=== PATIENT | female | born 1985 | race Caucasian/White ===

== ENCOUNTER 2016-11-25 11:33 | Emergency (ER) | payer MEDICAID ==
[~2016-11-25] VITALS: Ht 162.6 cm; Wt 107.0 kg
[2016-11-25 16:34] VITALS: BP 118/74
== END 2016-11-25 16:34 | disposition home or self-care (01) ==
LOC: ED 11:33
DX: J45.901 Unspecified asthma with (acute) exacerbation (principal); J20.9 Acute bronchitis, unspecified
CPT/HCPCS: J7512; J7613

== ENCOUNTER 2017-02-08 10:33 | Emergency (ER) | payer MEDICAID ==
[~2017-02-08] VITALS: Ht 170.2 cm; Wt 106.1 kg
[2017-02-08 11:28] LABS: BASOPHIL % 0.3 % (0-2); PLATELET COUNT 255 x10^3mcL (130-400); RED CELL DISTRIBUTION WIDTH 15.3 % (11.5-14.5)
[2017-02-08 11:32] LABS: CALCIUM 8.1 mg/dL (8.5-10.1); CARBON DIOXIDE 26.4 mmol/L (21-32); CHLORIDE SERUM 107 mmol/L (98-107); CREATININE SERUM 0.7 mg/dL (0.6-1.0); GFR1 > 60 mL/min; GLUCOSE SERUM 92 mg/dL (74-106); POTASSIUM SERUM 3.9 mmol/L (3.5-5.1); SODIUM SERUM 140 mmol/L (136-145)
[2017-02-08 11:37] LABS: ALKALINE PHOSPHATASE 117 U/L (46-116); ALT/SGPT 21 U/L (14-59); AST/SGOT 14 U/L (15-37); BILIRUBIN TOTAL 0.4 mg/dL (0.20-1.00); TOTAL PROTEIN, SERUM 6.6 g/dL (6.4-8.2)
[2017-02-08 11:38] LABS: ALBUMIN 3.1 g/dL (3.4-5.0)
[2017-02-08 12:39] LABS: UA SPECIFIC GRAVITY 1.025 (1.005-1.035); microscopic required? YES; urine erythrocyte NEGATIVE (NEGATIVE)
[2017-02-08 13:45] VITALS: BP 104/64
== END 2017-02-08 13:45 | disposition home or self-care (01) ==
LOC: ED 10:33
PROVIDERS: Emergency Medicine Emergency Medical Services
DX: R10.32 Left lower quadrant pain (principal); R10.31 Right lower quadrant pain; J45.909 Unspecified asthma, uncomplicated; Z91.018 Allergy to other foods
CPT/HCPCS: 36415

== ENCOUNTER 2017-05-08 11:54 | Emergency (ER) | payer MEDICAID ==
[2017-05-08 13:04] LABS: BASOPHIL % 0.3 % (0-2); PLATELET COUNT 270 x10^3mcL (130-400)
[2017-05-08 13:07] LABS: RED CELL DISTRIBUTION WIDTH 15.7 % (11.5-14.5)
[2017-05-08 13:15] LABS: microscopic required? YES; urine erythrocyte 3+ (NEGATIVE)
[2017-05-08 13:17] LABS: CALCIUM 8.6 mg/dL (8.5-10.1); CARBON DIOXIDE 26.6 mmol/L (21-32); CHLORIDE SERUM 106 mmol/L (98-107); CREATININE SERUM 0.8 mg/dL (0.6-1.0); GFR1 > 60 mL/min; GLUCOSE SERUM 113 mg/dL (74-106); POTASSIUM SERUM 3.7 mmol/L (3.5-5.1); SODIUM SERUM 140 mmol/L (136-145)
[2017-05-08 13:21] LABS: ALKALINE PHOSPHATASE 133 U/L (46-116); ALT/SGPT 30 U/L (14-59); AST/SGOT 31 U/L (15-37); BILIRUBIN TOTAL 0.36 mg/dL (0.20-1.00); LIPASE 89 IU/L (73-393); TOTAL PROTEIN, SERUM 7.4 g/dL (6.4-8.2)
[2017-05-08 13:22] LABS: ALBUMIN 3.3 g/dL (3.4-5.0)
[2017-05-08 16:39] VITALS: BP 132/76
== END 2017-05-08 16:39 | disposition home or self-care (01) ==
LOC: ED 11:54
PROVIDERS: Emergency Medicine
DX: R10.9 Unspecified abdominal pain (principal)
CPT/HCPCS: 36415; 87491; 87591; J1170; Q0162

== ENCOUNTER 2018-01-06 10:44 | Emergency (ER) | payer MEDICAID ==
[~2018-01-06] VITALS: Ht 160 cm; Wt 114.8 kg
[2018-01-06 10:52] VITALS: Ht 160 cm; Wt 114.8 kg
[2018-01-06 11:52] LABS: BASOPHIL % 0.1 % (0-2); PLATELET COUNT 257 x10^3mcL (130-400)
[2018-01-06 11:53] LABS: RED CELL DISTRIBUTION WIDTH 15.8 % (11.5-14.5)
[2018-01-06 11:56] LABS: CALCIUM 8.2 mg/dL (8.5-10.1); CARBON DIOXIDE 24.8 mmol/L (21-32); CHLORIDE SERUM 105 mmol/L (98-107); CREATININE SERUM 0.5 mg/dL (0.6-1.0); GFR1 > 60 mL/min; GLUCOSE SERUM 106 mg/dL (74-106); POTASSIUM SERUM 3.8 mmol/L (3.5-5.1); SODIUM SERUM 140 mmol/L (136-145)
[2018-01-06 11:58] LABS: UA SPECIFIC GRAVITY 1.025 (1.005-1.035); microscopic required? YES; urine erythrocyte TRACE (NEGATIVE)
[2018-01-06 12:53] VITALS: BP 114/58
== END 2018-01-06 12:53 | disposition home or self-care (01) ==
LOC: ED 10:44
PROVIDERS: Emergency Medicine
DX: N39.0 Urinary tract infection, site not specified (principal); J45.909 Unspecified asthma, uncomplicated; Z91.018 Allergy to other foods
CPT/HCPCS: 36415; J3010; Q0092; Q0162